=== PATIENT | male | born 1975 | race Asian ===

== ENCOUNTER 2020-04-09 09:27 | Inpatient (IN) | payer BC ==
[~2020-04-09] VITALS: Ht 167.6 cm; Wt 75.0 kg
[~2020-04-09 09:27] MED LIST: dexameTHASONE 4 MG/ML 1ML VIAL (J1100 PER 1MG) IV SCH
[2020-04-09 10:17] LABS: BASO % 0.1 % (0.0-1.0); HEMOGLOBIN 13.7 g/dl (13.5-17.5); LYMPH # 0.9 10^3/uL (1.5-5.0); MEAN CORPUSCULAR HGB CONC 32.6 g/dl (32.0-36.5); MEAN CORPUSCULAR VOLUME 82.7 fl (80.0-96.0); MONO # 0.4 10^3/uL (0.0-0.8); MONO % 5.2 % (0.0-5.0); NEUTROPHILS # 6.6 10^3/uL (1.5-8.5); NEUTROPHILS % 83.1 % (36.0-66.0); PLATELET COUNT, AUTOMATED 280 10^3/uL (150-450); RED BLOOD COUNT 5.08 10^6/uL (4.30-6.10); WHITE BLOOD COUNT 7.9 10^3/uL (4.0-10.0)
--- NOTE | 2020-04-09 10:20 | REP ---
INDICATION: Coronavirus workup. COMPARISON: No comparison study. TECHNIQUE: Portable upright AP chest radiograph. FINDINGS: Monitoring electrodes are seen. The lungs are symmetrically aerated. There are bibasilar patchy infiltrates consistent with viral pneumonia. Heart is not enlarged. Pulmonary vasculature is not increased. No acute bony abnormality is seen.. IMPRESSION: Bibasilar patchy infiltrates consistent with viral pneumonia. Otherwise negative.. <Electronically signed by Richard Forrest > 04/09/20 [id number]
[2020-04-09 11:07] LABS: ALBUMIN 3.5 GM/DL (3.2-5.2); ALT/SGPT 81 U/L (12-78); BILIRUBIN,TOTAL 1.2 MG/DL (0.2-1.0); BLOOD UREA NITROGEN 10 MG/DL (7-18); C REACTIVE PROTEIN QUANTITATIV 8.15 MG/DL (0.00-0.30); CALCIUM LEVEL 8.2 MG/DL (8.5-10.1); CARBON DIOXIDE LEVEL 28 MEQ/L (21-32); CHLORIDE LEVEL 100 MEQ/L (98-107); CREATININE FOR GFR 1.04 MG/DL (0.70-1.30); FERRITIN 2502 NG/ML (26-388); GLOMERULAR FILTRATION RATE > 60.0 (>60); GLUCOSE, FASTING 111 MG/DL (70-100); POTASSIUM SERUM 3.9 MEQ/L (3.5-5.1); SODIUM LEVEL 132 MEQ/L (136-145); TOTAL PROTEIN 7.5 GM/DL (6.4-8.2); TROPONIN I < 0.02 NG/ML (< 0.10)
[2020-04-09] MEDS ORDERED: ENOXAPARIN 100MG/1ML SYRINGE (J1650 PER 10MG) SC SCH (12:30)
[2020-04-09] MEDS ORDERED: REMDESIVIR 200 MG in NS 250 ML IV ONE ×2 (12:30→16:00)
--- NOTE | 2020-04-09 13:09 | HPEPDOC ---
[facility] Medical History & Physical Date of Admission Apr 09, 2020 Date of Service: Apr 09, 2020 History and Physical CHIEF COMPLAINT: "I felt cold." HISTORY OF PRESENT ILLNESS: 45-year-old male with no past medical history presents to the emergency room with complaints of intractable headache, stomach ache, chest pain and chills without nausea, vomiting, diarrhea since last . Patient was seen in his usual state of health but was exposed to a coworker who was covid-19 positive. He denies any documented fevers, dysgeusia, anosmia, paroxysmal nocturnal dyspnea. He describes the chest pain in the substernal area without radiation lasting for a few hours without any exacerbating or ameliorating factors accom panied with a dry cough, unable to sleep due to persistent abdominal discomfort in the right upper quadrant unchanged by food or position. He did not take any medications for the fever, headache, abdominal or chest pain. In the emergency room. He had no fever but was found to be hypoxic, 78% on room air, but recovered quickly after 30 seconds to oxygen saturation of 94-97% on room air. PAST MEDICAL HISTORY: None PAST SURGICAL HISTORY: None SOCIAL HISTORY: Works in [employer]. Denies tobacco abuse, recreational drug use. Admits to drinking hard liquor occasionally FAMILY HISTORY: Father at the age of 50 due to a motor vehicle accident. Mother alive and well age 76 and not taking any medications ALLERGIES: No known drug allergies HOME MEDICATIONS: NONE REVIEW OF SYSTEMS: 12 points review of systems negative aside from positive findings in HPI HOME MEDICATIONS: Please see below. PHYSICAL EXAMINATION: VITAL SIGNS: see below GENERAL APPEARANCE: Awake, alert, oriented 3, answering questions appropriately. No respiratory distress. No conversational dyspnea HEENT: Pupils are equally round, reactive to light and accommodation. Moist mucous membranes. No cervical lymphadenopathy, thyromegaly, pharyngeal erythema or tonsillar exudates CARDIOVASCULAR: S1, S2, sinus rhythm. Tachycardic. No murmurs, rubs or gallops LUNGS: Bilateral fine crackles. Diminished breath sounds. No expiratory wheezing ABDOMEN: Soft, slightly tender right upper quadrant. No rebound, guarding. Positive bowel sounds 4 quadrants. No hepatosplenomegaly EXTREMITIES: No cyanosis, clubbing or pitting edema LABORATORY DATA: See below. IMAGIN04/09/2020. Chest x-ray Bilateral patchy infiltrates consistent with viral pneumonia MICROBIOLOGY: Please see below. ASSESSMENT: 45-year-old male with no past medical history presents to the emergency room with complaints of intractable headache, stomach ache, chest pain and chills without nausea, vomiting, diarrhea since last . Patient was seen in his usual state of health but was exposed to a coworker who was covid-19 positive. He denies any documented fevers, dysgeusia, anosmia, paroxysmal nocturnal dyspnea. He describes the chest pain in the substernal area without radiation lasting for a few hours without any exacerbating or ameliorating factors accompanied with a dry cough, unable to sleep due to persistent abdominal discomfort in the right upper quadrant unchanged by food or position. He did not take any medications for the fever, headache, abdominal or chest pain. In the emergency room. He had no fever but was found to be hypoxic, 78% on room air, but recovered quickly after 30 seconds to oxygen saturation of 94-97% on room air Acute hypoxic respiratory failure -Secondary to Covid 19. Pneumonia. 78% on room air with ambulation documented in the emergency room -Supportive care with IV Remdesevir , IV Solu-Medrol, aspirin, and Lovenox -Obtain sputum cultures and monitor inflammatory markers and cardiac markers -Keep O2 saturations above 92% -Full code. -If he continues to decompensate and become much more hypoxic. He will need prone positioning and transfer to icu. Covid 19 viral pneumonia -Supportive care with IV Remdesevir , IV Solu-Medrol, aspirin, and Lovenox -Obtain sputum cultures and monitor inflammatory markers and cardiac markers -Keep O2 saturations above 92% Chest pain -Rule out viral myocarditis -Cycle cardiac markers and monitor inflammatory markers Supportive care with treatment for Covid 19, infection -Serial EKG as needed Abdominal pain -Secondary to Covid 19, infection -Continue supportive care -Monitor cardiac markers DVT prophylaxis: On Lovenox Diet regular CODE STATUS full code Vital Signs Vital Signs Date Time Temp Pulse Resp B/P (MAP) Pulse Ox O2 Delivery O2 Flow Rate FiO2 04/09/20 12:39 94 18 95 Room Air 04/09/20 10:30 104/57 (73) 04/09/20 09:45 100.2 Laboratory Data Labs 24H Laboratory Tests 2 04/09/20 09:38: Anion Gap 4L, Glomerular Filtration Rate > 60.0, Calcium Level 8.2L, Ferritin 2502H, Total Bilirubin 1.2H, Aspartate Amino Transf (AST/SGOT) 91H, Alanine Aminotransferase (ALT/SGPT) 81H, Alkaline Phosphatase 72, Troponin I < 0.02, C- Reactive Protein, Quantitative 8.15H, Total Protein 7.5, Albumin 3.5, A lbumin/Globulin Ratio 0.9 04/09/20 09:41: Immature Granulocyte % (Auto) 0.6, Neutrophils (%) (Auto) 83.1H, Lymphocytes (%) (Auto) 11.0L, Monocytes (%) (Auto) 5.2H, Eosinophils (%) (Auto) 0.0, Basophils (%) (Auto) 0.1, Neutrophils # (Auto) 6.6, Lymphocytes # (Auto) 0.9L, Monocytes # (Auto) 0.4, Eosinophils # (Auto) 0.0, Basophils # (Auto) 0.0, Nucleated Red Blood Cells % (auto) 0.0, D-Dimer, Quantitative 930.46H, Lactic Acid Level 0.9 CBC/BMP Laboratory Tests 04/09/20 09:38 04/09/20 09:41 Home Medications No Active Prescriptions or Reported Meds Allergies Coded Allergies: No Known Allergies (Verified Allergy, Unknown, 04/09/20) A-FIB/CHADSVASC A-FIB History Current/History of A-Fib/PAF?: No Current PO Anticoag Therapy: No Age/Risk Factor Scoring CHADSVASC: CHADSVASC Response (Comments) Value Age Risk Factor Age < 65 years old 0 Gender Risk Factor Male 0 Hx of CHF No 0 Hx of HTN No 0 Hx of Stroke/TIA/or VTE No 0 Hx of Diabetes No 0 Hx of Vascular Disease No 0 Total 0 Treatment Treatment ordered: NONE JUAN LOBATO MD Apr 09, 2020 13:04
[2020-04-09] MEDS ORDERED: PANTOPRAZOLE 40MG VIAL (C9113 PER 1) IV ONE (13:30)
[2020-04-09] MEDS ORDERED: GI COCKTAIL 50ML BTL(HYOSCYAMINE/MAALOX/LIDOCAINE VISCOUS)(1:3:1) PO ONE (13:30)
[2020-04-09 13:45] VITALS: BP 118/67; O2SAT 95
[2020-04-09] MEDS ORDERED: ACETAMINOPHEN TAB 650MG DOSE (2X325MG) PO ONE (14:00)
[2020-04-09] MEDS ORDERED: SODIUM CHLORIDE 0.9% INJ 10 ML SYR IV ONE ×2 (14:30→18:00)
[2020-04-09 15:36] LABS: BASO % 0.1 % (0.0-1.0); HEMATOCRIT 41.7 % (42.0-52.0); HEMOGLOBIN 13.9 g/dl (13.5-17.5); LYMPH # 0.9 10^3/uL (1.5-5.0); LYMPH % 9.9 % (24.0-44.0); MEAN CORPUSCULAR HEMOGLOBIN 27.5 pg (27.0-33.0); MEAN CORPUSCULAR HGB CONC 33.3 g/dl (32.0-36.5); MEAN CORPUSCULAR VOLUME 82.6 fl (80.0-96.0); MONO # 0.4 10^3/uL (0.0-0.8); NEUTROPHILS # 7.4 10^3/uL (1.5-8.5); NEUTROPHILS % 84.4 % (36.0-66.0); PLATELET COUNT, AUTOMATED 284 10^3/uL (150-450); RED BLOOD COUNT 5.05 10^6/uL (4.30-6.10); WHITE BLOOD COUNT 8.8 10^3/uL (4.0-10.0)
[2020-04-09 16:01] LABS: INR 0.99; PROTHROMBIN TIME 13.3 SECONDS (12.5-14.3)
[2020-04-09 16:02] LABS: PARTIAL THROMBOPLASTIN TIME 40.2 SECONDS (24.2-38.5)
[2020-04-09 16:05] LABS: D-DIMER QUANT 917.2 ng/ml (<500)
[2020-04-09 16:10] LABS: CK-MB VALUE MASS < 1.0 NG/ML (<3.6); CPK CREATINE PHOSPHOKINASE 884 U/L (39-308); MB/CK RELATIVE INDEX 0.11 (< OR =4); TROPONIN I < 0.02 NG/ML (< 0.10)
[2020-04-09 17:00] VITALS: O2SAT 94
[2020-04-09 17:19] LABS: ALBUMIN 3.7 GM/DL (3.2-5.2); ALT/SGPT 84 U/L (12-78); BILIRUBIN,DIRECT 0.4 MG/DL (0.0-0.2); BILIRUBIN,TOTAL 1.1 MG/DL (0.2-1.0); BLOOD UREA NITROGEN 13 MG/DL (7-18); C REACTIVE PROTEIN QUANTITATIV 9.67 MG/DL (0.00-0.30); CALCIUM LEVEL 7.9 MG/DL (8.5-10.1); CARBON DIOXIDE LEVEL 23 MEQ/L (21-32); CHLORIDE LEVEL 101 MEQ/L (98-107); CK-MB VALUE MASS < 1.0 NG/ML (<3.6); CPK CREATINE PHOSPHOKINASE 934 U/L (39-308); CREATININE FOR GFR 0.85 MG/DL (0.70-1.30); FERRITIN 2131 NG/ML (26-388); GLOMERULAR FILTRATION RATE > 60.0 (>60); GLUCOSE, FASTING 107 MG/DL (70-100); HEPATITIS B SURFACE ANTIGEN NEGATIVE (NEGATIVE); HIV 1&2 SCREEN CENTAUR NEGATIVE (NEGATIVE); LDH LACTATE DEHYDROGENASE 582 U/L (87-241); MB/CK RELATIVE INDEX 0.11 (< OR =4); NT-PRO BNP 40 PG/ML (<125); POTASSIUM SERUM 4.1 MEQ/L (3.5-5.1); SODIUM LEVEL 133 MEQ/L (136-145); TOTAL PROTEIN 7.3 GM/DL (6.4-8.2); TRIGLYCERIDES LEVEL 74 MG/DL (<150); TROPONIN I < 0.02 NG/ML (< 0.10)
[2020-04-09] MEDS ORDERED: ACETAMINOPHEN TAB 650MG DOSE (2X325MG) PO PRN (18:00)
[2020-04-09] MEDS: ASPIRIN 81 MG ENTERIC TAB PO SCH (18:04)
[2020-04-09] MEDS: ENOXAPARIN 80MG/0.8ML SYRINGE (J1650 PER 10MG) SC SCH (18:05)
[2020-04-09 20:00] VITALS: BP 126/78; O2SAT 98
[2020-04-10 02:00] VITALS: O2SAT 98
[2020-04-10 04:00] VITALS: BP 109/65
--- NOTE | 2020-04-10 05:20 | ECGEPIP ---
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
[2020-04-10 06:20] VITALS: O2SAT 98
[2020-04-10] MEDS: ENOXAPARIN 80MG/0.8ML SYRINGE (J1650 PER 10MG) SC SCH (06:51)
[2020-04-10 08:00] VITALS: O2SAT 97
[2020-04-10 08:18] LABS: BASO % 0.1 % (0.0-1.0); HEMOGLOBIN 14.6 g/dl (13.5-17.5); LYMPH # 0.5 10^3/uL (1.5-5.0); LYMPH % 7.4 % (24.0-44.0); MEAN CORPUSCULAR HEMOGLOBIN 27.7 pg (27.0-33.0); MEAN CORPUSCULAR HGB CONC 33.2 g/dl (32.0-36.5); MEAN CORPUSCULAR VOLUME 83.3 fl (80.0-96.0); MONO # 0.3 10^3/uL (0.0-0.8); MONO % 4.1 % (0.0-5.0); NEUTROPHILS % 87.8 % (36.0-66.0); PLATELET COUNT, AUTOMATED 343 10^3/uL (150-450); RED BLOOD COUNT 5.28 10^6/uL (4.30-6.10); WHITE BLOOD COUNT 6.9 10^3/uL (4.0-10.0)
[2020-04-10 08:44] LABS: INR 1.12; PROTHROMBIN TIME 14.6 SECONDS (12.5-14.3)
[2020-04-10 08:47] LABS: D-DIMER QUANT 651.33 ng/ml (<500)
[2020-04-10] MEDS ORDERED: PANTOPRAZOLE 40MG VIAL (C9113 PER 1) IV SCH (09:00)
[2020-04-10 09:01] LABS: ALBUMIN 3.3 GM/DL (3.2-5.2); ALT/SGPT 87 U/L (12-78); BILIRUBIN,DIRECT 0.4 MG/DL (0.0-0.2); BLOOD UREA NITROGEN 19 MG/DL (7-18); CALCIUM LEVEL 8.2 MG/DL (8.5-10.1); CARBON DIOXIDE LEVEL 26 MEQ/L (21-32); CHLORIDE LEVEL 103 MEQ/L (98-107); CPK CREATINE PHOSPHOKINASE 668 U/L (39-308); CREATININE FOR GFR 0.84 MG/DL (0.70-1.30); FERRITIN 2428 NG/ML (26-388); GLOMERULAR FILTRATION RATE > 60.0 (>60); GLUCOSE, FASTING 126 MG/DL (70-100); LDH LACTATE DEHYDROGENASE 554 U/L (87-241); POTASSIUM SERUM 4.3 MEQ/L (3.5-5.1); SODIUM LEVEL 136 MEQ/L (136-145); TOTAL PROTEIN 7.3 GM/DL (6.4-8.2); TROPONIN I < 0.02 NG/ML (< 0.10)
[2020-04-10] MEDS ORDERED: ASPI81TAEC PO (09:54)
[2020-04-10] MEDS ORDERED: PROAAER10 INH (09:54)
[2020-04-10] MEDS ORDERED: TESS100C PO (09:54)
[2020-04-10] MEDS: ASPIRIN 81 MG ENTERIC TAB PO SCH (10:07)
[2020-04-10] MEDS ORDERED: REMDESIVIR 100 MG in NS 250 ML IV SCH ×2 (12:30→16:00)
[2020-04-10] MEDS ORDERED: SODIUM CHLORIDE 0.9% INJ 10 ML SYR IV SCH ×2 (13:30→17:00)
--- NOTE | 2020-04-10 15:06 | DS.PDOC ---
Discharge Summary General Date of Admission Apr 09, 2020 at 12:29 Date of Discharge 04/10/2020 Attending Physician: YANG HAINES MD Discharge Summary PROCEDURES PERFORMED DURING STAY: None ADMITTING DIAGNOSES: Covid-19 infection DISCHARGE DIAGNOSES: Covid-19 PNA COMPLICATIONS/CHIEF COMPLAINT: Pneumonia Due To Covid-19 Virus. HISTORY OF PRESENT ILLNESS: 45 yo M with no significant past medical history who presented with SOB and cough and subjective fevers and was admitted for covid-19 infection HOSPITAL COURSE: He was HDS but had a documented fever in the ED, saturated well on room air but had noted exertional hypoxemia and with mild inflammatory indices on studies and CXR with multifocal infiltrates on CXR c/w covid-19 PNA. He was started on remdesevir and dexamethasone and was stable on room air this morning. He is now being discharged home with supportive tessalon perls for cough and albuterol inhaler for potential wheezing, SOB and cough during the infection. Am urging him to self isolate for 14 days in total until all symptoms resolve and see his PCP either via telemedicine within 7d or within 2 weeks in person after hospital discharge. I discussed reasons to represent to the hospital including unremitting chest pain, worsening SOB and clinical deterioration which may occur with covid-19 infection. He expressed understanding. DISCHARGE MEDICATIONS: Please see below. ALLERGIES: Please see below. PHYSICAL EXAMINATION ON DISCHARGE: VITAL SIGNS: Please see below. PHYSICAL EXAMINATION: VITAL SIGNS: see below GENERAL APPEARANCE: Awake, alert, oriented 3, answering questions appropriately. No respiratory distress. No conversational dyspnea HEENT: Pupils are equally round, reactive to light and accommodation. Moist mucous membranes. No cervical lymphadenopathy, thyromegaly, pharyngeal erythema or tonsillar exudates CARDIOVASCULAR: S1, S2, sinus rhythm. Tachycardic. No murmurs, rubs or gallops LUNGS: Bibasilar fine crackles. Diminished breath sounds. No expiratory wheezing ABDOMEN: Soft, slightly tender right upper quadrant. No rebound, guarding. Positive bowel sounds 4 quadrants. No hepatosplenomegaly EXTREMITIES: No cyanosis, clubbing or pitting edema LABORATORY DATA: See below. IMAGIN04/09/2020. Chest x-ray Bilateral patchy infiltrates consistent with viral pneumonia PROGNOSIS: Good ACTIVITY: As tolerated DIET: Regular DISCHARGE PLAN: Home with albuterol and benzonatate with PCP follow up DISPOSITION: Home DISCHARGE INSTRUCTIONS: Home with albuterol and benzonatate with PCP follow up ITEMS TO FOLLOWUP ON ON OUTPATIENT: 1. Covid-19 PNA resolution DISCHARGE CONDITION: Stable TIME SPENT ON DISCHARGE: 44 minutes. Vital Signs/I&Os Vital Signs Date Time Temp Pulse Resp B/P (MAP) Pulse Ox O2 Delivery O2 Flow Rate FiO2 04/10/20 06:20 98 Room Air 04/10/20 04:00 98.5 84 20 109/65 (80) I&O- Last 24 Hours up to 6 AM 04/10/20 06:00 Intake Total 30 ml Balance 30 ml Laboratory Data Labs 24H Laboratory Tests 2 04/09/20 15:00: Prothrombin Time 13.3, Prothromb Time International Ratio 0.99, Activated Partial Thromboplast Time 40.2H, Fibrinogen 579H, D-Dimer, Quantitative 917.20H, Total Creatine Kinase 884H, Creatine Kinase MB < 1.0, Creatine Kinase MB Relati ve Index 0.11, Troponin I < 0.02, Procalcitonin 0.14 04/09/20 15:01: Total Creatine Kinase 934H, Creatine Kinase MB < 1.0, Creatine Kinase MB Relative Index 0.11, Troponin I < 0.02, Immature Granulocyte % (Auto) 0.6, Neutrophils (%) (Auto) 84.4H, Lymphocytes (%) (Auto) 9.9L, Monocytes (%) (Auto) 5.0, Eosinophils (%) (Auto) 0.0, Basophils (%) (Auto) 0.1, Neutrophils # (Auto) 7.4, Lymphocytes # (Auto) 0.9L, Monocytes # (Auto) 0.4, Eosinophils # (Auto) 0.0, Basophils # (Auto) 0.0, Nucleated Red Blood Cells % (auto) 0.0, Anion Gap 9, Glomerular Filtration Rate > 60.0, Calcium Level 7.9L, Ferritin 2131H, Total Bilirubin 1.1H, Direct Bilirubin 0.4H, Aspartate Amino Transf (AST/SGOT) 94H, Alanine Aminotransferase (ALT/SGPT) 84H, Alkaline Phosphatase 74, Lactate Dehydrogenase 582H, C-Reactive Protein, Quantitative 9.67H, CG-Xdl-X-Type Natriuretic Peptide 40, Total Protein 7.3, Albumin 3.7, Albumin/Globulin Ratio 1.0, Triglycerides Level 74, Hepatitis B Surface Antigen NEGATIVE, HIV Antigen/Antibody Combo Qual NEGATIVE 04/10/20 07:47: Prothrombin Time 14.6H, Prothromb Time International Ratio 1.12, Activated Partial Thromboplast Time 50.0H, Fibrinogen 616H, D-Dimer, Quantitative 651.33H, Total Creatine Kinase 668H, Troponin I < 0.02, Immature Granulocyte % (Auto) 0.6, Neutrophils (%) (Auto) 87.8H, Lymphocytes (%) (Auto) 7.4L, Monocytes (%) (Auto) 4.1, Eosinophils (%) (Auto) 0.0, Basophils (%) (Auto) 0.1, Neutrophils # (Auto) 6.0, Lymphocytes # (Auto) 0.5L, Monocytes # (Auto) 0.3, Eosinophils # (Auto) 0.0, Basophils # (Auto) 0.0, Nucleated Red Blood Cells % (auto) 0.0, Anion Gap 7L, Glomerular Filtration Rate > 60.0, Calcium Level 8.2L, Ferritin 2428H, Total Bilirubin 1.0, Direct Bilirubin 0.4H, Aspartate Amino Transf (AST/SGOT) 75H, Alanine Aminotransferase (ALT/SGPT) 87H, Alkaline Phosphatase 79, Lactate Dehydrogenase 554H, C-Reactive Protein, Quantitative 12.50H, Total Protein 7.3, Albumin 3.3, Albumin/Globulin Ratio 0.8 CBC/BMP Laboratory Tests 04/09/20 15:01 04/10/20 07:47 Discharge Medications Scheduled Aspirin (Aspirin EC) 81 Mg Tablet.dr, 81 MG PO DAILY Scheduled PRN Albuterol Sulfate (Proair Hfa) 8.5 Gm Hfa.aer.ad, 2 PUFF INH Q4-6HP PRN for wheezing Benzonatate (Tessalon Perle) 100 Mg Capsule, 1 CAP PO TIDP PRN for COUGH Allergies Coded Allergies: No Known Allergies (Verified Allergy, Unknown, 04/09/20) YANG HAINES MD Apr 10, 2020 10:02
[2020-04-11] MEDS ORDERED: ENOXAPARIN 40MG/0.4ML SYRINGE (J1650 PER 10MG) SC SCH (09:00)
[2020-04-11 14:09] LABS: HEPATITIS B CORE ANTIBODY IGG Positive (Negative); MYCOPLASMA PNEUMONIAE IgG <100 U/mL (0-99); MYCOPLASMA PNEUMONIAE IgM <770 U/mL (0-769)
== END 2020-04-10 13:45 | disposition home or self-care (01) | DRG 137 ==
LOC: EDBD 09:27 → M ED 09:27 → M ED INP 12:29 → M 4MAIN 12:52 → M ED 13:40 → M 4MAIN 14:21
PROVIDERS: ADMIT General Practice; ATTEND Internal Medicine
PROC: XW033E5 Introduction of Remdesivir Anti-infective into Peripheral Vein, Percutaneous Approach, New Technology Group 5 (ICD-10-PCS; principal; 2020-04-09)
PROC: 3E0333Z Introduction of Anti-inflammatory into Peripheral Vein, Percutaneous Approach (ICD-10-PCS; 2020-04-09)
DX: U07.1 COVID-19 (principal); J12.89 Other viral pneumonia; R10.9 Unspecified abdominal pain

== ENCOUNTER 2021-09-06 13:59 | Emergency (ER) | payer BC ==
[~2021-09-06] VITALS: Ht 167.6 cm; Wt 75.7 kg
[~2021-09-06 13:59] MED LIST changes: +ASPI-569 PO; +PROAAER10 INH; +TESS100C PO; -dexameTHASONE 4 MG/ML 1ML VIAL (J1100 PER 1MG) IV SCH
[2021-09-06] MEDS ORDERED: BOOSTRIX/ADACEL VACCINE (DIPHTH/PERTUSS/ACELL/TETANUS) 0.5ML SYR IM ONE (15:10)
[2021-09-06] MEDS ORDERED: CEPH500C PO (15:38)
[2021-09-06 15:54] VITALS: BP 133/72
== END 2021-09-06 15:58 | disposition home or self-care (01) ==
LOC: M ED 13:59
DX: S62.660B Nondisplaced fracture of distal phalanx of right index finger, initial encounter for open fracture (principal); X58.XXXA Exposure to other specified factors, initial encounter; Y92.9 Unspecified place or not applicable; Y93.9 Activity, unspecified; Y99.0 Civilian activity done for income or pay; Z23 Encounter for immunization

== ENCOUNTER 2025-03-29 10:29 | Emergency (ER) | payer OTHER ==
[~2025-03-29] VITALS: Ht 167.6 cm; Wt 76.9 kg
[~2025-03-29 10:29] MED LIST changes: +CEPH500C PO
[2025-03-29] MEDS ORDERED: ISOVUE-370 76% 100 ML VIAL As Ordered ONE (12:05)
[2025-03-29 12:14] LABS: BASO # 0.1 10^3/uL (0.0-0.2); BASO % 1.3 % (0.0-1.0); EOS # 0.1 10^3/uL (0.0-0.5); EOS % 1.4 % (0.0-3.0); LYMPH # 1.2 10^3/uL (1.5-5.0); LYMPH % 14.5 % (24.0-44.0); MONO # 0.3 10^3/uL (0.0-0.8); MONO % 4.3 % (2.0-8.0); NEUTROPHILS # 6.2 10^3/uL (1.5-8.5); NEUTROPHILS % 78.2 % (36.0-66.0); PLATELET COUNT, AUTOMATED 344 10^3/uL (150-450)
[2025-03-29 12:31] LABS: CK-MB VALUE MASS 2.6 NG/ML (<3.6)
[2025-03-29 12:37] LABS: CPK CREATINE PHOSPHOKINASE 254.0 U/L (46-171); MB/CK RELATIVE INDEX 1.02 (< OR =4)
[2025-03-29 13:31] VITALS: BP 122/67; TEMP 97.6; O2SAT 98
== END 2025-03-29 13:43 | disposition home or self-care (01) ==
LOC: M ED 10:29
DX: R07.89 Other chest pain (principal); V49.40XA Driver injured in collision with unspecified motor vehicles in traffic accident, initial encounter; Y92.9 Unspecified place or not applicable; Y93.9 Activity, unspecified; Y99.9 Unspecified external cause status; K76.0 Fatty (change of) liver, not elsewhere classified
CPT/HCPCS: 71046; 71260; 74177; 80047; 82550; 82553; 84484; 85025; 93005; 99284; Q9967